=== PATIENT | male | born 1995 | race Caucasian/White ===

== ENCOUNTER 2018-02-03 11:09 | Emergency (ER) | payer OTHER ==
--- NOTE | 2018-02-03 12:34 | ED Physician Documentation ---
PD HPI SKIN - Stated complaint Stated Complaint: REDNESS UNDER ARM - Chief complaint Chief Complaint: General - History obtained from History obtained from: Patient - History of Present Illness Timing - onset: Yesterday (noted red area under arm yesterday (not axilla per se , but in triceps area). Not aware of injury. Did not feel sting/etc. The area is bigger and tender today and is covering good part of upper arm posteriorly.) Timing - duration: Days (1) Timing - details: Abrupt onset, Still present (worse today) Location: LUE Quality / character: Burning, Discolored (red), Swelling. No: Itchy Associated symptoms: No: Fever, Myalgias Contributing factors: No: Exposed to medication, Exposed to food, Insect bite / sting, Recent illness Similar symptoms before: Has not had sx before Recently seen: Not recently seen Review of Systems Constitutional: denies: Fever, Chills, Myalgias Nose: denies: Rhinorrhea / runny nose, Congestion Throat: denies: Sore throat Respiratory: denies: Cough GI: denies: Nausea, Vomiting Neurologic: denies: Focal weakness, Numbness PD PAST MEDICAL HISTORY - Past Medical History Past Medical History: Yes - Past Surgical History Past Surgical History: No - Present Medications Home Medications: Ambulatory Orders Medication Instructions Recorded Confirmed Cephalexin [Keflex] 500 mg PO QID #20 capsule 02/03/18 Cetirizine [ZyrTEC] 10 mg PO DAILY #15 tablet 02/03/18 Dexamethasone [Decadron] 4 mg PO DAILY #5 tablet 02/03/18 diphenhydrAMINE [Benadryl] 25 mg PO Q4-6H PRN #30 capsule 02/03/18 - Allergies Allergies/Adverse Reactions: Allergies Allergy/AdvReac Type Severity Reaction Status Date / Time No Known Drug Allergies Allergy Verified 02/03/18 11:24 - Social History Does the pt smoke?: No Smoking Status: Never smoker Does the pt drink ETOH?: No Does the pt have substance abuse?: No - Immunizations Immunizations are current?: Yes - POLST Patient has POLST: No PD ED PE NORMAL - Vitals Vital signs reviewed: Yes - General General: Alert and oriented X 3, No acute distress, Well developed/nourished - Neck Neck: Supple, no meningeal sign, No adenopathy - Cardiac Cardiac: RRR, No murmur - Respiratory Respiratory: Clear bilaterally - Derm Derm: Normal color, Warm and dry, Other (there is uniform redness with swelling posterior left upper arm, not into axilla per se. No focal area of raised skin nor lesions. Rest of arms/upper chest without lesions. ) Results - Vitals Vitals: Oxygen O2 Source Room air PD MEDICAL DECISION MAKING - ED course Complexity details: considered differential, d/w patient Departure - Departure Disposition: 01 Home, Self Care Clinical Impression: Cellulitis of left arm Insect bite of left upper arm with local reaction Qualifiers: Encounter type: initial encounter Qualified Code(s): S40.862A - Insect bite ( nonvenomous) of left upper arm, initial encounter Condition: Stable Record reviewed to determine appropriate education?: Yes Instructions: ED Infec Skin Cellulitis Follow-Up: JEFF Gallego [Provider Group] Prescriptions: Cephalexin [Keflex] 500 mg PO QID #20 capsule Cetirizine [ZyrTEC] 10 mg PO DAILY #15 tablet Dexamethasone [Decadron] 4 mg PO DAILY #5 tablet diphenhydrAMINE [Benadryl] 25 mg PO Q4-6H PRN #30 capsule PRN Reason: Itching Comments: Warm towels to the area periodically to get good blood flow in case of infection. This may be local response to the number toxin in which case the steroid and antihistamines will take treat that. Alternatively would consider a skin infection called cellulitis and the cephalexin antibiotic is for that. Take them as directed. Recheck if not improved over the next few days. Discharge Date/Time: 02/03/18 12:57
[2018-02-03] MEDS ORDERED: cephALEXin 250 MG CAPSULE PO STA (12:44)
[2018-02-03] MEDS ORDERED: CETIRIZINE 10 MG TABLET PO STA (12:44)
[2018-02-03] MEDS ORDERED: DEXAMETHASONE 10 MG/ML VIAL PO STA (12:44)
[2018-02-03] MEDS ORDERED: IBUPROFEN 600 MG TABLET PO STA (12:45)
[2018-02-03 12:57] VITALS: BP 99/67
== END 2018-02-03 12:57 | disposition home or self-care (01) ==
LOC: ED 11:09
DX: L03.114 Cellulitis of left upper limb (principal); S40.862A Insect bite (nonvenomous) of left upper arm, initial encounter
CPT/HCPCS: 99283; A9270